=== PATIENT | female | born 1990 | race Caucasian/White ===

== ENCOUNTER 2023-08-23 22:24 | Emergency (ER) | payer SELFPAY ==
[2023-08-23 23:19] VITALS: BP 137/93; PULSE 90; RESP 19; TEMP 98.1; BMI 30.6
[2023-08-24] MEDS: SODIUM CHLORIDE 0.9% 500 ML INFUS.BAG IV ONE (00:14)
== END 2023-08-24 00:30 | disposition home or self-care (01) ==
LOC: JER 22:24
DX: O09.521 Supervision of elderly multigravida, first trimester (principal); O99.891 Other specified diseases and conditions complicating pregnancy; R55 Syncope and collapse; R61 Generalized hyperhidrosis; R00.2 Palpitations; Z3A.13 13 weeks gestation of pregnancy
CPT/HCPCS: 93005; 93010; 99283-25